=== PATIENT | male | born 1990 | race African-American/Black ===

== ENCOUNTER 2017-02-14 01:29 | Emergency (ER) | payer SELFPAY ==
[~2017-02-14] VITALS: Ht 170.2 cm; Wt 72.0 kg
[2017-02-14 01:35] VITALS: BP 133/90
== END 2017-02-14 02:15 | disposition left against medical advice (07) ==
LOC: ER 01:34
DX: Z53.21 Procedure and treatment not carried out due to patient leaving prior to being seen by health care provider (principal)